=== PATIENT | male | born 1990 | race African-American/Black ===

== ENCOUNTER 2025-02-05 12:53 | Emergency (ER) | payer SELFPAY ==
[~2025-02-05] VITALS: Ht 190.5 cm; Wt 127.9 kg
[2025-02-05 13:10] VITALS: PULSE 75; RESP 19; TEMP 97.3
[2025-02-05] MEDS ORDERED: SODIUM CHLORIDE 0.9% 1000ML 2,000 ML ONE (13:58)
[2025-02-05] MEDS: SODIUM CHLORIDE 0.9% IRRIG 3,000 ML BAG IR STA ×2 (14:14→14:15)
[2025-02-05 15:13] VITALS: BP 142/87; PULSE 65; RESP 16; TEMP 98.5; O2SAT 97
== END 2025-02-05 15:11 | disposition home or self-care (01) ==
LOC: FSED 13:11
DX: H10.213 Acute toxic conjunctivitis, bilateral (principal); Y99.0 Civilian activity done for income or pay; E78.5 Hyperlipidemia, unspecified
CPT/HCPCS: 99283; J7030